=== PATIENT | male | born 1930 | race Caucasian/White ===

== ENCOUNTER → 2019-03-30 | Day surgery (SDC) | payer OTHER | END | disposition home or self-care (01) | LOC: JRADIR 10:43 | PROVIDERS: ATTEND Internal Medicine Geriatric Medicine | PROC: 02HV33Z Insertion of Infusion Device into Superior Vena Cava, Percutaneous Approach (ICD-10-PCS; principal; 2019-03-30) | PROC: B518ZZA Fluoroscopy of Superior Vena Cava, Guidance (ICD-10-PCS; 2019-03-30) | DX: A49.02 Methicillin resistant Staphylococcus aureus infection, unspecified site (principal) | CPT/HCPCS: 36569; 77001-TC-FY; C1751 ==